=== PATIENT | male | born 1945 | race Caucasian/White ===

== ENCOUNTER 2017-07-15 05:59 | Inpatient (IN) | payer MEDICARE, OTHER ==
[~2017-07-15] VITALS: Ht 170.2 cm; Wt 65.2 kg
[~2017-07-15 05:59] MED LIST: ACTOS45 MG PO; AMARYL4 MG PO; ASPIR 8181 M1 PO; GLUCOPHAGE XR500 M1 PO; HUMALOG100 UNITS/ SC; IRON1 TA1 PO; LANTUS SOL100 UNIT/1 SQ; LANTUS SOLOSTAR3 ML SQ; LEVEMIR100 U/M SQ; LEVEMIR100 UNITS/ SC; LISINOPRIL-HC PO; LOW DOSE ASPIRI81 M1 PO; MAGNESIUM250 M2 PO; MAGNESIUM250 M3 PO; MOBIC7.5 M2 PO; MULTI-VITAMIN1 EAC2 PO; MULTIVITAMINS1 EAC6 PO; NORCO 5/325 TAB1 TAB PO; NOVOLOG100 U/M SQ; TOUJEO SOL300 UNIT/1 SC; VITAMIN D35000 UNI3 PO; VITAMIN D5000 UNIT PO; ZOCOR40 M1 PO; ZOCOR80 MG PO; [UNRECOGNIZED DRUG - OTHER] PO
--- NOTE | 2017-07-15 21:05 | NUR ---
VIRTUAL CARE NOTE: PT. IN BED. STATES HAD CLEAR LIQUID DIET AND TOLERATATED IF WELL, HAD WALKED AND HAS BEEN DOING HIS I.S. ALSO MENTIONED THAT THEY WERE ABLE TO RECONNECT HIM AND HE DIDN'T HAVE A BAG. PRAISE GIVEN FOR THE GREAT POST-OPERATIVE ACTIONS HE HAS DONE. STATES SCD'S ARE ALSO ON AFTER THIS RN REVIEWED TO PUMP HIS LEGS AT TIMES TO PREVENT BLOOD CLOTS WHILE IN BED. DENIES FURTHER NEEDS AT THIS TIME, STATES PAIN IS TOLERABLE. INSTRUCTED TO CALL FOR FUTURE NEEDS. STATES VERBAL UNDERSTANDING.
--- NOTE | 2017-07-16 00:08 | NUR ---
VIRTUAL CARE NOTE: ASSESSMENT DEFERRED. PT. SLEEPING.
[2017-07-16 05:29] LABS: BASO % 0.1 % (0-2); EOS % 0.1 % (0-7); HCT-HEMATOCRIT 31.6 % (36.0-53.5); HGB-HEMOGLOBIN 10.2 gm/dl (13.5-17.0); IMMATURE GRANULOCYTES ABSOLUTE 0.04 tho/cmm (0-0.03); IMMATURE GRANULOCYTES PERCENT 0.3 % (0-0.3); LYMPH % 4.1 % (20-45); LYMPH ABSOLUTE COUNT 0.6 tho/cmm (0.8-4.5); MCH (MEAN CORPUSCULAR HGB) 27.1 pg (28.0-32.0); MCHC MEAN CORPUSCULAR HGB CONC 32.3 % (32.0-36.0); MEAN PLATELET VOLUME 9.2 cmc (9.4-12.4); MONO % 10.7 % (0-12); MONOCYTE ABSOLUTE COUNT 1.5 tho/cmm (0.0-1.2); NEUTROPHIL ABSOLUTE COUNT 11.7 tho/cmm (1.6-8.0); NEUTROPHIL-AUTOMATED 11.7 tho/cmm (1.6-8.0); NEUTROPHILS % 84.7 % (40-80); PLATELET COUNT 241 tho/cmm (150-450); RED BLOOD COUNT 3.76 mil/cmm (4.40-5.70); RED CELL DISTRIBUTION WIDTH 16.6 % (12.4-16.4); WHITE BLOOD COUNT 13.8 tho/cmm (4.0-10.0)
[2017-07-16 05:43] LABS: ANION GAP 11 mmol/L (0-20); BLOOD UREA NITROGEN 20 mg/dl (6-24); CALCIUM 7.7 mg/dl (8.5-10.5); CARBON DIOXIDE-VENOUS 27 mmol/L (22-32); CHLORIDE 106 mmol/l (96-110); CREATININE 1.11 mg/dl (0.60-1.30); GLUCOSE 143 mg/dL (70-110); MAGNESIUM 1.6 mg/dl (1.8-2.6); POTASSIUM 4.3 mmol/L (3.7-5.1); SODIUM 140 mmol/L (135-145); eGFR VALUE FOR BLACK 77 mL/Min
--- NOTE | 2017-07-17 00:08 | NUR ---
VIRTUAL CARE NOTE ASSESSMENT DEFERRED. PT. SLEEPING.
[2017-07-17] MEDS ORDERED: NORCO 5-325 TA1 EACH PO (11:33)
== END 2017-07-17 12:55 | DRG 330 ==
LOC: SHSC 05:59 → CARE 06:00 → ORW 07:58 → PACU 12:17 → 5WD 13:35
PROVIDERS: Physician Assistant; ADMIT Colon & Rectal Surgery
PROC: 0DTN0ZZ Resection of Sigmoid Colon, Open Approach (ICD-10-PCS; principal; 2017-07-15)
DX: C20 Malignant neoplasm of rectum (principal); E87.1 Hypo-osmolality and hyponatremia; E11.65 Type 2 diabetes mellitus with hyperglycemia; D64.9 Anemia, unspecified; E11.9 Type 2 diabetes mellitus without complications; E55.9 Vitamin D deficiency, unspecified; E78.5 Hyperlipidemia, unspecified; Z87.891 Personal history of nicotine dependence; Z79.4 Long term (current) use of insulin
CPT/HCPCS: J0131; J1335; J1644; J1650; J1815; J1885; J2250; J7030